=== PATIENT | male | born 1960 | race Caucasian/White ===

== ENCOUNTER 2024-01-17 08:25 | Outpatient (REF) | payer BC, SELFPAY ==
--- NOTE | ~2024-01-17 | XR_ITS ---
EXAMINATION: XR KNEE, LEFT CLINICAL INFORMATION: Pain in the left knee COMPARISON: X-ray left knee December 2020 TECHNIQUE: Four views of the left knee. FINDINGS: Mild osteoarthritis involving all compartments without joint space narrowing. No effusion. Surrounding bone and soft tissues unremarkable. XR/XR knee LT 3V IMPRESSION: Mild osteoarthritis of the left knee. Electronically signed by: Eder Smith MD 01/23/2024 03:44 PM EDT
== END 2024-01-17 08:26 | disposition home or self-care (01) ==
LOC: HO.HOSX 08:25
PROVIDERS: PCP Internal Medicine Endocrinology, Diabetes & Metabolism; Visit Provider Orthopaedic Surgery
DX: M17.12 Unilateral primary osteoarthritis, left knee (principal)
CPT/HCPCS: 73562

== ENCOUNTER 2024-01-17 09:03 | Outpatient (AMB) | payer BC, SELFPAY ==
--- NOTE | 2024-01-17 09:04 | MHC.OFFVIS ---
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 The patient describes his pain as sharp in nature. His pain has gotten worse over the last year in spite of continued non operative treatments. He has failed the last 3 months of conservative treatment which includes a home exercise program, topical creams, Tylenol and anti-inflammatory medicines. He has had cortisone injections given elsewhere in the past which gave him minimal relief. He has also done physical therapy exercises which aggravated his pain. The patient states that his left knee pain is now interfering with his activities of daily living and his ability to sleep well through the night. Allergies No Known Allergies Allergy (Verified 01/17/24 09:07) Medication List - Last Reconciled 01/17/24 by Don Frost MD ezetimibe 10 mg PO DAILY lisinopril-hydrochlorothiazide 20-25 mg 1 tab PO DAILY Physical Exam Const Other: Well-nourished well-developed very friendly male awake alert and oriented x3 in no acute distress Extrem Other: Bilateral lower extremity examination shows good capillary refill, no skin lesions noted, normal sensation light touch Left knee examination shows a minimal effusion, palpable crepitus with range of motion, pain with range of motion, range of motion from -3 degrees to 115 degrees, no instability Results Reviewed Results Reviewed: Standing full weight-bearing x-rays of the patient's left knee show mild joint space narrowing, no acute bony abnormalities Assessment & Plan Assessment & Plan (1) Osteoarthritis of left knee: Code(s): M17.12 - Unilateral primary osteoarthritis, left knee Category: Medical Plan Mr. Waters presents with left knee pain due to osteoarthritis. I had a lengthy discussion with the patient regarding the treatment options. He wishes to hold off on surgery for as long as possible. I agree with this plan. He has failed the last 3 months of conservative treatment. Thus, I will see whether or not the patient's insurance company will cover a viscosupplementation injection. I will see him back once the injection is available. He will continue with his activity modifications in the meantime. Feel free to call me at any time should questions regarding his orthopedic management arise. I spent 21 minutes in reviewing the patient's records and imaging studies, seeing the patient and documenting in the medical record. Orders: Orders XR knee LT 3V Today M25.562 - Pain in left knee Coding Level of Care Code New Pt Level 3 (02773) Complex EM visit Add On G2211 Diagnoses Osteoarthritis of left knee M17.12
== END 2024-01-17 09:24 | disposition home or self-care (01) ==
PROVIDERS: PCP Internal Medicine Endocrinology, Diabetes & Metabolism; Visit Provider Orthopaedic Surgery
DX: M17.12 Unilateral primary osteoarthritis, left knee (principal)
CPT/HCPCS: 99203

== ENCOUNTER 2024-02-27 08:41 | Outpatient (AMB) | payer BC, SELFPAY ==
--- NOTE | 2024-02-27 08:47 | MHC.OFFVIS ---
Intake Visit Reasons: inj-Left knee Durolane injection Intake Note: Chaz is a 64 year old male who presents with complaints of progressively worsening left knee pain. He describes his pain as sharp in nature. His pain has gotten worse over the last few years spite of continued non operative treatments. He has done physical therapy exercises which aggravated his pain. He has also tried Tylenol and anti-inflammatory medicines which gave him minimal relief. He denies any locking or giving way. Allergies No Known Allergies Allergy (Verified 02/27/24 08:53) Medication List - Last Reconciled 02/27/24 by Don Frost MD ezetimibe 10 mg PO DAILY lisinopril-hydrochlorothiazide 20-25 mg 1 tab PO DAILY Physical Exam Const Other: Well-nourished well-developed very friendly male awake alert and oriented x3 in no acute distress Extrem Other: Bilateral lower extremity examination shows good capillary refill, no skin lesions noted, normal sensation light touch Left knee examination shows a minimal effusion, palpable crepitus with range of motion, pain with range of motion, no instability Office Procedures Joint Injection/Aspiration Joint Injection/Aspiration Primary Site: left knee Prep: site was prepped using aseptic technique Injected: 60 mg of (Durolane viscosupplementation) and 1% plain lidocaine Procedure: The patient tolerated the procedure well Coding 00280 - Large joint Procedure code (CPT) selection complete Results Reviewed Results Reviewed: X-rays of the patient's left knee taken previously show joint space narrowing, subchondral sclerosis, no acute bony abnormalities Assessment & Plan Assessment & Plan (1) Osteoarthritis of left knee: Code(s): M17.12 - Unilateral primary osteoarthritis, left knee Category: Medical Plan Mr. Waters presents with left knee pain due to osteoarthritis. I had a lengthy discussion with the patient regarding the treatment options. The risks and benefits of a left knee Durolane viscosupplementation injection were discussed at length with the patient. The patient wished to proceed. He tolerated the injection well. He will continue with his home exercise program. He will follow up with me on an as-needed basis should his symptoms not plateau at an unacceptable level over the next few months. Feel free to call me at any time should questions regarding his orthopedic management arise. I spent 20 minutes in reviewing the patient's records and imaging studies, seeing the patient and documenting in the medical record. Orders: Orders AMB Joint Injection/Aspiration Today M17.12 - Unilateral primary osteoarthritis, left knee Coding Level of Care Code Est Pt Level 3 (48175) Complex EM visit Add On G2211 Diagnoses Osteoarthritis of left knee M17.12 CPT Codes Coding - 98964 Large joint: 65501 - Large joint ([id number])
== END 2024-02-27 09:02 | disposition home or self-care (01) ==
LOC: HO.HOS 08:42
PROVIDERS: PCP Internal Medicine Endocrinology, Diabetes & Metabolism; Visit Provider Orthopaedic Surgery
DX: M17.12 Unilateral primary osteoarthritis, left knee (principal)
CPT/HCPCS: 20610; 99213

== ENCOUNTER → 2024-02-27 08:41 | Outpatient (BNVA) | payer BC, SELFPAY | PROVIDERS: PCP Internal Medicine Endocrinology, Diabetes & Metabolism; Visit Provider Orthopaedic Surgery | DX: M17.12 Unilateral primary osteoarthritis, left knee (principal) | CPT/HCPCS: 20610; J2003; J7318 ==